=== PATIENT | male | born 1960 | race Caucasian/White ===

== ENCOUNTER 2021-05-08 17:33 | Emergency (ER) | payer BC ==
[~2021-05-08] VITALS: Ht 185.4 cm; Wt 100.0 kg
--- NOTE | 2021-05-08 18:41 | PHYS DOC ---
Past History Past Surgical History: Other Additional Past Surgical Histo: ORIF right leg, hernia repair (DANIEL GONZALEZ APRN) Additional Smoking Information: cigars Alcohol Use: Occasionally (DANIEL GONZALEZ APRN) General Adult EDM: Chief Complaint: LOWER EXT PAIN HPI: HPI: Patient is a 60-year-old male who presents with right shoulder and right knee pain after a fall. Patient states he was [place] when he tripped and fell. Patient denies hitting his head or loss of consciousness. Denies needing anything for pain control. (DANIEL GONZALEZ APRN) Review of Systems: Review of Systems: ROS At least 10 ROS systems have been reviewed and are negative except as documented in the HPI. General: Negative except as outlined in HPI above. Skin: Negative except as outlined in HPI above. HEENT: Negative except as outlined in HPI above. Neck: Negative except as outlined in HPI above. Respiratory: Negative except as outlined in HPI above.. Cardiovascular: Negative except as outlined in HPI above. Abdomen: Negative except as outlined in HPI above. : Negative except as outlined in HPI above. Back/MSK: Negative except as outlined in HPI above. Neuro: Negative except as outlined in HPI above. Psych: Negative except as outlined in HPI above. (DANIEL GONZALEZ APRN) Allergies: Allergies: Allergies Coded Allergies Type Severity Reaction Last Updated Verified No Known Drug Allergies 05/08/21 No (DNAIEL GONZALEZ APRN) Physical Exam: PE: Constitutional: Well developed, well nourished, no acute distress, non-toxic appearance. [] HENT: Normocephalic, atraumatic, bilateral external ears normal, oropharynx moist, no oral exudates, nose normal. [] Eyes: PERRLA, EOMI, conjunctiva normal, no discharge. [] Neck: Normal range of motion, no tenderness, supple, no stridor. [] Cardiovascular:Heart rate regular rhythm, no murmur [] Lungs & Thorax: Bilateral breath sounds clear to auscultation [] Abdomen: Bowel sounds normal, soft, no tenderness, no masses, no pulsatile masses. [] Skin: Warm, dry, no erythema, no rash. [] Back: No tenderness, no CVA tenderness. [] Extremities: Right shoulder and right knee tenderness, no cyanosis, pedal pulses intact, ROM intact, no edema. [] Neurologic: Alert and oriented X 3, normal motor function, normal sensory function, no focal deficits noted. [] Psychologic: Affect normal, judgement normal, mood normal. [] (DANIEL GONZALEZ APRN) Current Patient Data: Vital Signs: Vital Signs Date Time Temp Pulse Resp B/P (MAP) Pulse Ox O2 Delivery O2 Flow Rate FiO2 05/08/21 17:50 98.0 83 16 142/102 (115) 98 (DANIEL GONZALEZ APRN) EKG: EKG: [] (DANIEL GONZALEZ APRN) Radiology/Procedures: Radiology/Procedures: []Study: XR SHOULDER_RIGHT 2+ VIEWS Indication: Injury. Fall. Comparison: None. Findings: No acute fracture. Alignment is within normal limits. Mild glenohumeral and ac romioclavicular joint arthrosis. Mild degenerative subacromial spurring. No significant narrowing of the acromiohumeral interval. Impression: No acute fracture or traumatic malalignment. Mild arthrosis. Electronically signed by: OMAR DENNISON MD (05/08/2021 7:26 PM) [facility] Study: XR KNEE 4 VIEWS WITH PATELLA_RT Indication: Injury. Fall. Comparison: None. Findings: No displaced fracture. There appears to be a small knee joint effusion but without a lipohemarthrosis. Femorotibial compartment joint space height is maintained. Quadriceps insertion enthesophyte. Small patellofemoral compartment osteophytes. Somewhat heterogeneous soft tissues at the medial aspect of the lower leg. Impression: 1. No displaced fracture or traumatic malalignment. Mild arthrosis. Possible small knee joint effusion but this could also be summation artifact from distal thigh musculature. 2. The soft tissues appear asymmetrically heterogeneous at the medial aspect of the lower leg. Contusive injury is possible in the appropriate clinical setting. Electronically signed by: OMAR DENNISON MD (05/08/2021 7:22 PM) [facility] (DANIEL GONZALEZ APRN) Heart Score: C/O Chest Pain: No Risk Factors: Risk Factors: DM, Current or recent (<one month) smoker, HTN, HLP, family history of CAD, obesity. Risk Scores: Score 0 - 3: 2.5% MACE over next 6 weeks - Discharge Home Score 4 - 6: 20.3% MACE over next 6 weeks - Admit for Clinical Observation Score 7 - 10: 72.7% MACE over next 6 weeks - Early Invasive Strategies (DANIEL GONZALEZ APRN) Course & Med Decision Making: Course & Med Decision Making Pertinent Labs and Imaging studies reviewed. (See chart for details) [] 60-year-old male presents after tripping and falling at home. Right shoulder and right knee pain after fall. Right shoulder and right knee x-ray ordered to rule out fracture. Patient requesting a lower leg x-ray due to bruising. Denies needing pain medication. Pedal pulses intact. All imaging unremarkable. Discussed results with patient. Rice instructions given. Patient should follow-up with his PCP in 5 to 7 days. Return precautions given. Patient reports he understands discharge instructions. Hemodynamically stable upon disposition. (DANIEL GONZALEZ APRN) Course & Med Decision Making Did not see or evaluate patient. Did not discuss patient with HARDBOARD PRESS OPERATOR. Agree with HARDBOARD PRESS OPERATOR's work-up and disposition per note. (TINO JACOME MD) Dragon Disclaimer: Dragon Disclaimer: This electronic medical record was generated, in whole or in part, using a voice recognition dictation system. (DANIEL GONZALEZ APRN) Departure Departure: Impression: Primary Impression: Fall Qualified Codes: W19.XXXA - Unspecified fall, initial encounter Additional Impressions: Ankle pain, right Qualified Codes: M25.571 - Pain in right ankle and joints of right foot Knee pain, right Qualified Codes: M25.561 - Pain in right knee Disposition: 01 HOME / SELF CARE / HOMELESS Condition: STABLE Referrals: KATY ABAD MD (PCP) Patient Instructions: RICE - Routine Care for Injuries, [id number] Additional Instructions: You were seen for right knee and right shoulder pain after a fall. X-rays were negative for fracture. Rest, use ice to the area, a knee brace was provided, elevate to help with swelling and pain. Follow-up with your PCP in 5 to 7 days if pain continues. Ibuprofen and Tylenol at home for discomfort. Return to the emergency room if you have worsening symptoms or concerns. EMERGENCY DEPARTMENT GENERAL DISCHARGE INSTRUCTIONS Thank you for coming to [facility] (ED) today and trusting us with you care. We trust that you had a positivie experience in our Emergency Department. If you wish to speak to the department management, you may call the director at [phone]. YOUR FOLLOW UP INSTRUCTIONS ARE FOLLOWS: 1. Do you have a private Doctor? If you do not have a private doctor, please ask for a resource list of physicians or clinics that may be able to assist you with follow up care. 2. The Emergency Physician has interpreted your x-rays. The X-Ray specialist will also review them. If there is a change in the findings, you will be notified in 48 hours when at all possible. 3. A lab test or culture has been done, your results will be reviewed and you will be notified if you need a change in treatment. ADDITIONAL INSTRUCTIONS AND INFORMATION: 1. Your care today has been supervised by a physician who is specially trained in emergency care. Many problems require more than one evaluation for a complete diagnosis and treatment. We recommend that you schedule your follow up appointment as recommended to ensure complete treatment of you illness or injury. If you are unable to obtain follow up care and continue to have a problem, or if your condition worsens, we recommend that you return to the ED. 2. We are not able to safely determine your condition over the phone nor are we able to give sound medical advice over the phone. For these safety reasons, if you call for medical advice we will ask you to come to the ED for further evaluation. 3. If you have any questions regarding these discharge instructions please call the ED at [phone]. SAFETY INFORMATION: In the interest of safety, wellness, and injury prevention; we encourage you to wear your sealbelt, if you smoke; quite smoking, and we encourage family to use a protective helmet for bicycling and other sporting events that present an increased risk for head injury. IF YOUR SYMPTOMS WORSEN OR NEW SYMPTOMS DEVELOP, OR YOU HAVE CONCERNS ABOUT YOUR CONDITION; OR IF YOUR CONDITION WORSENS WHILE YOU ARE WAITING FOR YOUR FOLLOW UP APPOINTMENT; EITHER CONTACT YOUR PRIMARY CARE DOCTOR, THE PHYSICIAN WHOSE NAME AND NUMBER YOU WERE GIVEN, OR RETURN TO THE ED IMMEDIATELY. DANIEL GONZALEZ APRN May 08, 2021 18:41 TINO JACOME MD May 08, 2021 22:29
--- NOTE | 2021-05-08 19:24 | RAD ---
Study: XR KNEE 4 VIEWS WITH PATELLA_RT Indication: Injury. Fall. Comparison: None. Findings: No displaced fracture. There appears to be a small knee joint effusion but without a lipohemarthrosis . Femorotibial compartment joint space height is maintained. Quadriceps insertion enthesophyte. Small patellofemoral compartment osteophytes. Somewhat heterogeneous soft tissues at the medial aspect of the lower leg. Impression: 1. No displaced fracture or traumatic malalignment. Mild arthrosis. Possible small knee joint effusio n but this could also be summation artifact from distal thigh musculature. 2. The soft tissues appear asymmetrically heterogeneous at the medial aspect of the lower leg. Contus kathrine injury is possible in the appropriate clinical setting. Electronically signed by: OMAR DENNISON MD (05/08/2021 7:22 PM) [facility]
--- NOTE | 2021-05-08 19:28 | RAD ---
Study: XR SHOULDER_RIGHT 2+ VIEWS Indication: Injury. Fall. Comparison: None. Findings: No acute fracture. Alignment is within normal limits. Mild glenohumeral and acromioclavicular joint a rthrosis. Mild degenerative subacromial spurring. No significant narrowing of the acromiohumeral inte rval. Impression: No acute fracture or traumatic malalignment. Mild arthrosis. Electronically signed by: OMAR DENNISON MD (05/08/2021 7:26 PM) [facility]
[2021-05-08 20:00] VITALS: BP 130/87
--- NOTE | 2021-05-08 20:23 | RAD ---
Study: XR RT TIBIA+FIBULA Indication: Fall. Lower leg pain. Comparison: None. Findings: Distal fibula plate and screw construct. The hardware is intact and well fixated. No acute fracture of the tibia or fibula. Small chronic foci of ossification adjacent to the tips of the medial and lateral malleoli. Mild appearing but incompletely assessed arthrosis at the ankle. Hector ntar calcaneal spur. Impression: No acute osseous abnormality. Electronically signed by: OMAR DENNISON MD (05/08/2021 8:21 PM) [facility]
== END 2021-05-08 20:05 | disposition home or self-care (01) ==
LOC: ER 17:33
DX: M25.561 Pain in right knee (principal); M25.571 Pain in right ankle and joints of right foot; M25.511 Pain in right shoulder; F17.210 Nicotine dependence, cigarettes, uncomplicated; W01.0XXA Fall on same level from slipping, tripping and stumbling without subsequent striking against object, initial encounter; Y93.89 Activity, other specified; Y92.89 Other specified places as the place of occurrence of the external cause; Y99.8 Other external cause status
CPT/HCPCS: 73030; 73564; 73590; 99284-25